=== PATIENT | female | born 1960 | race Caucasian/White ===

== ENCOUNTER 2018-12-09 09:59 | Day surgery (SDC) | payer OTHER ==
[~2018-12-09] VITALS: Ht 175.3 cm; Wt 131.2 kg
[~2018-12-09 09:59] MED LIST: ACET325; ACETAMINOPHEN-1 EACH PO; Aspir 8181 MG; CITRACAL + BON1 EACH; ESCI20; Fiber Tabs625 MG; Glucophage1000 MG PO; HYDACE5 PO; Minocycline HC100 M1 PO; Multiple Vitam1 EACH PO; NAPR500 PO; NICOMIDE TABLE1 EAC1 PO; Naproxen250 MG PO; Prilosec Otc20 MG PO; RANI150; [UNRECOGNIZED DRUG - REMARK]
== END 2018-12-09 12:17 | disposition home or self-care (01) ==
LOC: ORSCSDS 09:59
PROVIDERS: Student in an Organized Health Care Education/Training Program
PROC: 0DB58ZX Excision of Esophagus, Via Natural or Artificial Opening Endoscopic, Diagnostic (ICD-10-PCS; principal; 2018-12-09 11:15)
PROC: 0DB68ZX Excision of Stomach, Via Natural or Artificial Opening Endoscopic, Diagnostic (ICD-10-PCS; principal; 2018-12-09 11:15)
DX: R13.10 Dysphagia, unspecified (principal); K21.9 Gastro-esophageal reflux disease without esophagitis; K44.9 Diaphragmatic hernia without obstruction or gangrene; E11.9 Type 2 diabetes mellitus without complications; E78.00 Pure hypercholesterolemia, unspecified; F32.9 Major depressive disorder, single episode, unspecified; Z87.891 Personal history of nicotine dependence; E66.01 Morbid (severe) obesity due to excess calories; Z68.42 Body mass index [BMI] 45.0-49.9, adult
CPT/HCPCS: 82947; 88305; 88342; J2704; J7120

== ENCOUNTER 2018-12-31 07:56 | Day surgery (SDC) | payer OTHER | END 2019-01-01 01:59 | disposition home or self-care (01) | LOC: MOI US 07:56 | PROC: 0HBT3ZX Excision of Right Breast, Percutaneous Approach, Diagnostic (ICD-10-PCS; principal; 2018-12-31) | DX: C50.811 Malignant neoplasm of overlapping sites of right female breast (principal); Z17.0 Estrogen receptor positive status [ER+] | CPT/HCPCS: 19083; 77065; 88305; 88342; 88360; A4648; G0279 ==

== ENCOUNTER 2019-01-05 10:21 | Day surgery (SDC) | payer OTHER | END 2019-01-05 22:58 | disposition home or self-care (01) | LOC: MOI MAM 10:21 | PROC: 0HBT3ZX Excision of Right Breast, Percutaneous Approach, Diagnostic (ICD-10-PCS; principal; 2019-01-05) | DX: C50.811 Malignant neoplasm of overlapping sites of right female breast (principal) | CPT/HCPCS: 19081; 88305 ==

== ENCOUNTER 2019-08-01 08:32 | Day surgery (SDC) | payer OTHER ==
[~2019-08-01] VITALS: Ht 175.3 cm; Wt 133.3 kg
[~2019-08-01 08:32] MED LIST changes: +AMIT10 PO; +Allegra-D 24 H1 EACH; +DAPS100 PO; +METF500 PO; +Naproxen500 MG PO; +OMEPRAZOLE20 MG PO; +SHINGRIX V50 MCG/0.5 IM
--- NOTE | 2019-08-01 09:30 | NUR ---
Ambulatory in Day Surgery. Surgical site prepped with 2% Chlorhexidine cloth wipe. History, Chart, Medications and Allergies reviewed before start of procedure. Lungs clear T/O to Auscultation. Patient confirms NPO status and agrees with scheduled surgery. Pre-Op teaching done. Pt verbalizes understanding. Patient States Post-Procedure ride home has been arranged. Patient reports completing Chlorhexadine shower X2 prior to admission to hospital.
--- NOTE | 2019-08-01 12:34 | NUR ---
PT AMBULATED WITH NURSE ASSIST TO RESTROOM. POSTIVE VOID. GAIT STEADY
--- NOTE | 2019-08-01 13:16 | NUR ---
Discharge instructions reviewed with patient. Patient verbalizes understanding. Copy given to patient to take home. Discharged via wheelchair to private car for ride home.
--- NOTE | 2019-08-02 09:47 | NUR ---
08/02/19 0947 Gisela Marques VERIFICATIONS: EDIT CHART.
== END 2019-08-01 13:11 | disposition home or self-care (01) ==
LOC: ORSCMMR 08:32 → ORD 10:00 → ORSCMMR 13:11 → ORD 08-15 12:30
PROVIDERS: Obstetrics & Gynecology
PROC: 0UB74ZZ Excision of Bilateral Fallopian Tubes, Percutaneous Endoscopic Approach (ICD-10-PCS; principal; 2019-08-01 10:00)
PROC: 0UB24ZZ Excision of Bilateral Ovaries, Percutaneous Endoscopic Approach (ICD-10-PCS; principal; 2019-08-01 10:00)
DX: C50.919 Malignant neoplasm of unspecified site of unspecified female breast (principal); Z40.02 Encounter for prophylactic removal of ovary(s); D25.9 Leiomyoma of uterus, unspecified; Z78.0 Asymptomatic menopausal state; R73.03 Prediabetes; K21.9 Gastro-esophageal reflux disease without esophagitis; E66.9 Obesity, unspecified; Z68.41 Body mass index [BMI] 40.0-44.9, adult; Z79.84 Long term (current) use of oral hypoglycemic drugs; Z87.891 Personal history of nicotine dependence; Z79.899 Other long term (current) drug therapy
CPT/HCPCS: 82947; 88305; 93005; 93010; A9270-GY; J1100; J1885; J2250; J2405; J2704; J2710; J3010; J7120